=== PATIENT | female | born 1995 | race Caucasian/White ===

== ENCOUNTER 2018-05-31 09:49 | Emergency (ER) | payer OTHER ==
[~2018-05-31] VITALS: Ht 160 cm; Wt 54.4 kg
[~2018-05-31 09:49] MED LIST: PROBIOTIC1 EACH PO; ZANTAC150 MG PO
== END 2018-05-31 13:27 | disposition home or self-care (01) ==
LOC: ER 09:49
DX: J11.1 Influenza due to unidentified influenza virus with other respiratory manifestations (principal); R50.9 Fever, unspecified